=== PATIENT | female | born 1960 | race Caucasian/White ===

== ENCOUNTER → 2018-08-20 09:27 | Emergency (ER) | payer BC ==
--- NOTE | 2018-08-20 10:01 | ED ---
Upper Extremity Pain - HPI Summary HPI Summary: Patient is 58-year-old female presenting to the ED with a right wrist injury. She states she fell approximately 1 hour [employer] and hit the right wrist on the side of a railroad tie on the ground. She endorses pain diffusely throughout the wrist. Denies any numbness or tingling. Denies any ecchymosis. Endorses a mild amount of swelling. Endorses deformity. She has never injured the wrist in the past. She takes no blood thinners and did not take any medications just prior to arrival. - History of Current Complaint Chief Complaint: EDExtremityUpper Stated Complaint: RIGHT WRIST PAIN Time Seen by Provider: 08/20/18 09:35 Hx Obtained From: Patient Mechanism Of Injury: Blunt Trauma Onset/Duration: Started Hours Ago Timing: Constant Severity Initially: Moderate Severity Currently: Moderate Pain Location: Wrist Character: Aching Aggravating Factor(s): Movement, Lifting, Flexion, Extension Alleviating Factor(s): Rest, Ice Associated Signs & Symptoms: Negative: Swelling, Redness, Bruising, Numbness/ Tingling Related History: Dominant Hand Right - Risk Factors Non-Orthopedic Risk Factor: Negative DVT Risk Factors: Negative Septic Arthritis Risk Factor: Negative Compartment Syndrome Risk Factors: Pain - Allergies/Home Medications Allergies/Adverse Reactions: Allergies Allergy/AdvReac Type Severity Reaction Status Date / Time No Known Allergies Allergy Verified 08/20/18 09:33 PMH/Surg Hx/FS Hx/Imm Hx Previously Healthy: Yes Endocrine/Hematology History: Reports: Hx Thyroid Disease - HYPER (RESOLVED) Cardiovascular History: Reports: Hx Angina Denies: Hx Coronary Artery Disease, Hx Hypercholesterolemia, Hx Hypertension , Hx Myocardial Infarction, Hx Valvular Heart Disease Respiratory History: Denies: Hx Asthma, Hx Chronic Obstructive Pulmonary Disease (COPD) - Surgical History Surgery Procedure, Year, and Place: SPINAL FUSION & AGUILA CLAIR IN BACK, TONSILLECTOMY, CHOLECYSTECTOMY, BILAT OVARIAN CYSTS REMOVED - Immunization History Hx Pertussis Vaccination: No Immunizations Up to Date: Yes Infectious Disease History: No Infectious Disease History: Denies: Traveled Outside the [place] in Last 30 Days - Social History Occupation: Employed Full-time Lives: With Family Alcohol Use: None Hx Substance Use: No Substance Use Type: Reports: None Hx Tobacco Use: No Smoking Status (MU): Never Smoked Tobacco Review of Systems Negative: Fever, Chills, Skin Diaphoresis Negative: Palpitations, Chest Pain Negative: Shortness Of Breath, Cough Negative: Vomiting, Diarrhea, Nausea Positive: Arthralgia, Myalgia Skin: Negative Neurological: Negative All Other Systems Reviewed And Are Negative: Yes Physical Exam Triage Information Reviewed: Yes Vital Signs On Initial Exam: Initial Vitals Temp Pulse Resp BP Pulse Ox 97.4 F 64 16 137/49 100 08/20/18 09:30 08/20/18 09:30 08/20/18 09:30 08/20/18 09:30 08/20/18 09:30 Vital Signs Reviewed: Yes Appearance: Positive: Well-Appearing, Well-Nourished Skin: Positive: Warm, Skin Color Reflects Adequate Perfusion Head/Face: Positive: Normal Head/Face Inspection Eyes: Positive: Normal, ERON, Conjunctiva Clear Neck: Positive: Supple, No Lymphadenopathy Respiratory/Lung Sounds: Positive: Clear to Auscultation, Breath Sounds Present Cardiovascular: Positive: RRR, Pulses are Symmetrical in both Upper and Lower Extremities Musculoskeletal: Positive: Pain @ - right wrist. Negative: Edema Left, Edema Right Neurological: Positive: Speech Normal Psychiatric: Positive: Normal Procedures - Splinting Right Upper Extremity Hand-Made Type: orthoglass Splint: volar Pre-Proc Neuro Vasc Exam: normal Post-Proc Neuro Vasc Exam: normal Diagnostics - Vital Signs Vital Signs Temp Pulse Resp BP Pulse Ox 08/20/18 09:30 97.4 F 64 16 137/49 100 - Laboratory Lab Statement: Any lab studies that have been ordered have been reviewed, and results considered in the medical decision making process. Course/Dx - Course Course Of Treatment: During the question, the patient is evaluated for right wrist injury. On arrival there is noted deformity to the right wrist without ecchymosis or swelling. Good cap refill. Pulses +2 bilaterally. Patient is comfortable, with a 2/10 pain, constant aching. She put arnica on the wrist just [employer]. Xray shows: IMPRESSION: Minimally impacted and displaced distal right radius fracture. Volar wrist splint applied. Discussed case with Dr. Duarte at 10:[address] Duarte states she is able to follow-up early next week. - Diagnoses Provider Diagnoses: Distal radius fracture, right Discharge - Sign-Out/Discharge Documenting (check all that apply): Patient Departure - Discharge Plan Condition: Stable Disposition: HOME Patient Education Materials: Wrist Fracture in Adults (ED) Referrals: Lilliana Livingston MD [Medical Doctor] - Tristin Duarte MD [Medical Doctor] - Additional Instructions: Call Wednesday for an appt or Wed (Dr. Duarte clinic hours) - he is aware of your call Ele[facility] Ibuprofen - Billing Disposition and Condition Condition: STABLE Disposition: Home
[2018-08-20 12:59] VITALS: BP 132/54
== END | disposition home or self-care (01) ==
LOC: ED 09:27
DX: S52.501A Unspecified fracture of the lower end of right radius, initial encounter for closed fracture (principal); W19.XXXA Unspecified fall, initial encounter; Y92.9 Unspecified place or not applicable; E05.90 Thyrotoxicosis, unspecified without thyrotoxic crisis or storm
CPT/HCPCS: 29125; 99282